=== PATIENT | male | born 1985 | race African-American/Black ===

== ENCOUNTER 2018-02-02 11:51 | Emergency (ER) | payer OTHER ==
[~2018-02-02] VITALS: Ht 195.6 cm; Wt 163.3 kg
[~2018-02-02 11:51] MED LIST: PERCOCET 5-3251 EACH PO; PREDNISONE10 M2 PO
[2018-02-02 12:47] LABS: ABSOLUTE BASOPHIL COUNT 0 /CUMM (0.0-0.2); ABSOLUTE EOSINOPHIL COUNT 0.1 /CUMM (0.0-0.7); ABSOLUTE GRANULOCYTE CT 6.8 /CUMM (1.4-6.5); ABSOLUTE LYMPH COUNT 1.1 /CUMM (1.2-3.4); ABSOLUTE MONOCYTE COUNT 0.5 /CUMM (0.10-0.60); BASOPHIL % 0.3 % (0.0-2.0); EOSINOPHIL % 1.5 % (0-5); GRANULOCYTE % 79.4 % (42.2-75.2); HEMATOCRIT 39.8 % (42-52); MEAN CORPUSCULAR HGB 28.3 PG (27.0-31.0); MEAN CORPUSCULAR HGB CONC 33.2 G/DL (33.0-37.0); MEAN CORPUSCULAR VOLUME 85.1 FL (80.0-94.0); MEAN PLATELET VOLUME 7.2 FL (7.4-10.4); PLATELET COUNT 443 /CUMM (130-400); RED BLOOD CELL CT 4.68 /CUMM (4.70-6.10); WHITE BLOOD CELL COUNT 8.6 /CUMM (4.8-10.8)
--- NOTE | 2018-02-02 17:04 | ED GI/GU/ABDOMINAL COMPLAINT ---
History of Present Illness General Chief Complaint: Abdominal Pain/Flank Pain Stated Complaint: ABD PAIN Source: patient Exam Limitations: no limitations Vital Signs & Intake/Output Vital Signs & Intake/Output Vital Signs Date Time Temp Pulse Resp B/P B/P Pulse O2 O2 Flow FiO2 Mean Ox Delivery Rate 02/02 2022 97.5 71 18 148/68 99 Room Air 02/02 1805 Room Air 02/02 1649 98.4 76 18 165/93 96 Room Air 02/02 1215 98.0 76 15 171/86 96 Room Air Room Air Allergies Coded Allergies: Milk Containing Products (LACTOSE INTOLERANT 02/02/18) Triage Note: PT BIBA FROM HOME FOR ABD PAIN MIDEPIGASTRIC PAIN. PT TOOK TWO MOTRINS (TOTAL OF 400 MG) TO HELP AND THEN VOMITED SHORTLY AFTER. REPORTS CHEST PAIN THEN, BUT NO PAIN AT THIS TIME. LAYING DOWN MADE PAIN WORSE. DENIES G/U SYMPTOMS. Triage Nurses Notes Reviewed? yes Onset: Abrupt Duration: hour(s):, intermittent Timing: recent history Quality/Severity: mild, moderate, sharpness Location: epigastric Radiation: no radiation Activities at Onset: none No Modifying Factors: none HPI: 33-year-old male comes into the emergency room with complaints of epigastric pain. Symptoms began earlier today before noon. Patient reports that he had a sudden onset sharp pain. He took some Motrin and then vomited it up. He has had the pain intermittently since. The pain is located in the epigastric region. Denies any changes in bowel movement. Denies any prior abdominal surgeries. Denies any prior history of this pain. He comes in for further evaluation. (Juan Jose Ayala) Reconcile Medications Ibuprofen (Nilsa-Profen) 200 MG TABLET 3-4 TAB PO PRN PAIN/INFLAMMATION ( Reported) Multiple Vitamin (Multivitamins) 1 EACH TABLET 1 TAB PO DAILY SUPPLEMENT ( Reported) Omeprazole 40 MG CAPSULE. 1 CAP PO DAILY acid eflux (Tomas Olivares) Past History Travel History Traveled to [place] past 21 day No Medical History Any Pertinent Medical History? 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 No (Juan Jose Ayala) Review of Systems Review of Systems Constitutional: Reports: no symptoms. EENTM: Reports: no symptoms. Respiratory: Reports: no symptoms. Cardiovascular: Reports: no symptoms. GI: Reports: see HPI. Genitourinary: Reports: no symptoms. Musculoskeletal: Reports: no symptoms. Skin: Reports: no symptoms. Neurological/Psychological: Reports: no symptoms. Hematologic/Endocrine: Reports: no symptoms. Immunologic/Allergic: Reports: no symptoms. All Other Systems: Reviewed and Negative (Juan Jose Ayala) Physical Exam Physical Exam General Appearance: well developed/nourished, no apparent distress, alert, awake Head: atraumatic, normal appearance Eyes: Bilateral: normal appearance. Ears, Nose, Throat, Mouth: hearing grossly normal, moist mucous membrane Neck: normal inspection Respiratory: normal breath sounds, no respiratory distress Cardiovascular: regular rate/rhythm Gastrointestinal: soft, non-tender Back: normal inspection Extremities: normal range of motion Neurologic/Psych: awake, alert, oriented x 3, normal gait Skin: intact, normal color Core Measures ACS in differential dx? Yes Sepsis Present: No Sepsis Focused Exam Completed? No (Juan Jose Ayala) Progress Differential Diagnosis: AMI, biliary colic, bowel obstruction, cholecystitis, gastritis, peptic ulcer, PUD/GERD, perforated viscous, SBO Plan of Care: Orders Procedure Date/time Status URINE DRUGS OF ABUSE 02/02 1705 Complete URINALYSIS 02/02 1705 Complete TROPONIN LEVEL 02/02 1704 Complete Add-on Test (ER Only) 02/02 1703 Active Add-on Test (ER Only) 02/02 1508 Active EKG 02/02 1508 Active TROPONIN LEVEL 02/02 1238 Complete D-DIMER 02/02 1238 Complete LIPASE 02/02 1226 Complete COMPREHENSIVE METABOLIC PANEL 02/02 1226 Complete CBC WITHOUT DIFFERENTIAL 02/02 1226 Complete Laboratory Tests 02/02/18 1749: Troponin I < 0.01 02/02/18 1725: Urine Opiates Screen < 100, Methadone Screen < 40, Barbiturate Screen < 60, Ur Phencyclidine Scrn < 6.00, Amphetamines Screen < 100, U Benzodiazepines Scrn < 85, Urine Cocaine Screen < 50, Urine Cannabis Screen < 5.00, Urine Color YEL, Urine Clarity CLEAR, Urine pH 5.5, Ur Specific [place] >= 1.030, Urine Protein 100 H, Urine Ketones 15 H, Urine Nitrite NEG, Urine Bilirubin NEG, Urine Urobilinogen 1.0, Ur Leukocyte Esterase NEG, Ur Microscopic SEDIMENT EXAMINED, Urine WBC 1-3 H, Urine Crystals RARE [place], Urine Bacteria RARE H, Urine Mucus FEW, Urine Hemoglobin NEG, Urine Glucose NEG 02/02/18 1238: Anion Gap 11, Estimated GFR > 60, BUN/Creatinine Ratio 17.1, Glucose 112 H, Calcium 9.3, Total Bilirubin 0.5, AST 52, ALT 47, Alkaline Phosphatase 119, Troponin I < 0.01, Total Protein 8.1, Albumin 4.2, Globulin 3.9, Albumin/ Globulin Ratio 1.1, Lipase 48, D-Dimer High Sensitivty 316 H, CBC w Diff NO MAN DIFF REQ, RBC 4.68 L, MCV 85.1, MCH 28.3, MCHC 33.2, RDW 13.0, MPV 7.2 L, Gran % 79.4 H, Lymphocytes % 13.4 L, Monocytes % 5.4, Eosinophils % 1.5, Basophils % 0.3, Absolute Granulocytes 6.8 H, Absolute Lymphocytes 1.1 L, Absolute Monocytes 0.5, Absolute Eosinophils 0.1, Absolute Basophils 0 JUAN JOSE ARAIZA PA-C DISCUSSED WITH ME FOR HAND OFF IN WHICH CTA IS PENDING DISCUSSED CT RESULTS WITH PT with unremarkable findings patient was given COPIES of blood work and imaging Upon discharge patient had normal steady gait and had no questions (Tomas Olivares) Diagnostic Imaging: Viewed by Me: Radiology Read, CT Scan, Ultrasound. Discussed w/RAD: Radiology Read, CT Scan, Ultrasound. Radiology Impression: PATIENT: KENDY BABB PRESENT AGE: 33 PATIENT ACCOUNT NO: [id number] : 87 LOCATION: [facility] ORDERING PHYSICIAN: Juan Jose STOKES SERVICE DATE: 02/02/18 EXAM TYPE: RAD - XRY-CHEST XRAY, TWO VIEWS EXAMINATION: XR CHEST CLINICAL INFORMATION: Epigastric pain COMPARISON: None TECHNIQUE: 2 views of the chest were obtained. FINDINGS: No significant abnormality is noted involving the heart, lungs, mediastinum, bony thorax or soft tissues. IMPRESSION: Unremarkable examination. DICTATED BY: Talon Chowdhury MD DATE/TIME DICTATED:02/02/181730 [employer] SUPERVISOR: GUSTAVO DATE/TIME TRANSCRIBED:02/02/181730 CONFIDENTIAL, DO NOT COPY WITHOUT APPROPRIATE AUTHORIZATION. <Electronically signed in Other Vendor System> SIGNED BY: Talon Chowdhury MD 02/02/181734, PATIENT: KENDY BABB PRESENT AGE: 33 PATIENT ACCOUNT NO: [id number] : 87 LOCATION: [facility] ORDERING PHYSICIAN: Juan Jose STOKES SERVICE DATE: 02/02/18 EXAM TYPE: US - US-LIMITED ABDOMEN EXAMINATION: US ABDOMEN LIMITED CLINICAL INFORMATION: Sharp and sudden epigastric pain. COMPARISON: None TECHNIQUE: Real-time imaging of the right upper quadrant abdominal viscera. Limited study due to body habitus and bowel gas. FINDINGS: PANCREAS: Obscured by bowel gas. LIVER: Enlarged and measures up to nearly 19 cm in length. There is increased hepatic echogenicity without a discrete lesion; evaluation is limited. GALLBLADDER: Normal. The gallbladder is physiologically distended without evidence of stones, sludge, polyps, wall thickening or pericholecystic fluid. COMMON BILE DUCT: Normal in caliber measuring 0.4 cm in diameter. RIGHT KIDNEY: Normal. No hydronephrosis. No renal calculi or focal parenchymal lesions. The kidney measures 15 cm in maximum dimension. FREE FLUID: None. IMPRESSION: Limited study due to patient body habitus and bowel gas. Normal appearance of the gallbladder. Mild hepatomegaly with increased echogenicity. Although nonspecific, findings can be seen in the setting of fatty infiltration. DICTATED BY: Wilfredo Connelly MD DATE/TIME DICTATED:02/02/181841 [employer] SUPERVISOR: GUSTAVO DATE/TIME TRANSCRIBED:02/02/181841 CONFIDENTIAL, DO NOT COPY WITHOUT APPROPRIATE AUTHORIZATION. <Electronically signed in Other Vendor System> SIGNED BY: Wilfredo Connelly MD 02/02/181847, PATIENT: KENDY BABB PRESENT AGE: 33 PATIENT ACCOUNT NO: [id number] : 87 LOCATION: [facility] ORDERING PHYSICIAN: Juan Jose STOKES SERVICE DATE: 03/16/18-1823 EXAM TYPE: CAT - CTA CHEST-PULMONARY EMBOLISM EXAMINATION: CT ANGIOGRAM OF THE CHEST WITH AND WITHOUT CONTRAST (CT PULMONARY ANGIOGRAM FOR PE) CLINICAL INFORMATION: Chest pain. COMPARISON: Chest x-ray 02/01/2018 TECHNIQUE: Prior to contrast administration, noncontrast localization images were obtained. Subsequently, multidetector volumetric imaging was performed from the thoracic inlet to below the diaphragms following the administration of 88 mL Optiray 320 intravenous contrast. No contrast reaction reported. Sagittal, coronal, and MIP oblique sagittal reformatted images were obtained on the CT workstation, uploaded to PACS, and reviewed. Total exam dose-length product 491.57 mGy-cm. FINDINGS: QUALITY OF STUDY/CONTRAST BOLUS: Satisfactory PULMONARY ARTERIES: No central or segmental pulmonary emboli. THORACIC AORTA: No aneurysm or dissection. LUNG: No focal consolidation, nodules or masses. PLEURA: No pleural effusion or pneumothorax. MEDIASTINUM: Normal heart size. No pericardial effusion. No hilar or mediastinal lymphadenopathy. No evidence of septal bowing or right heart strain. CHEST WALL/AXILLA: No axillary or internal mammary lymphadenopathy. OSSEOUS STRUCTURES: No acute or suspicious osseous abnormality. UPPER ABDOMEN: Unremarkable. No reflux of contrast into the hepatic veins to suggest elevated right heart pressures. IMPRESSION: No acute abnormality of the chest. No evidence of pulmonary embolism. VTE: negative DICTATED BY: Jv Garcia MD DATE/TIME DICTATED:02/02/182015 [employer] SUPERVISOR:GUSTAVO DATE/TIME TRANSCRIBED:02/02/182015 CONFIDENTIAL, DO NOT COPY WITHOUT APPROPRIATE AUTHORIZATION. <Electronically signed in Other Vendor System> SIGNED BY: Jv Garcia MD 02/02/182022 Initial ED EKG: normal sinus rhythm, rate (71) Hand-Off Endorsed To: Tomas Olivares (Juan Jose Ayala) Departure Departure Disposition: HOME OR SELF CARE Condition: Stable Clinical Impression Primary Impression: Abdominal pain Referrals: Patient Has No Primary Care Dr (PCP/Family) Additional Instructions: Follow-up with primary care doctor. Return if any concerns worsening symptoms. Please go over all results of today's visit with your primary care doctor. Contact your primary care doctor to let them know you were here in the emergency room. There may be nonspecific findings which may not be related to your visit today here in the emergency room but may require further evaluation and chronic monitoring by your primary care doctor. If you had a laceration today the chance of foreign body always remains. You should follow-up with your primary care doctor for recheck in 3-5 days for a wound check. If you had an x-ray done there is a chance that a fracture could have been missed on initial read and you should follow-up with your primary care doctor for repeat x-rays if symptoms persist. If your blood pressure was elevated here in the emergency room please have rechecked by [facility] primary care doctor within the next 48. If you were prescribed a narcotic here in the emergency room or any type of controlled substances you're not allowed to drive while taking this medication or operate any type of heavy machinery. Narcotics can make you feel lightheaded dizziness nausea and can cause constipation. You may need to pharmacy picking technician a stool softener. Thank you for choosing [facility] emergency room. Please return to the emergency room immediately if you have any other concerns worsening of symptoms. Departure Forms: Customer Survey General Discharge Information Prescriptions: Current Visit Scripts Omeprazole 1 CAP PO DAILY #30 CAP Comments 02/02/18 Patient clinically looks well. Patient is now very stressed. Patient is nontoxic-appearing. Patient signout to DIVYA Beltrán pending CT angiogram of chest. (Juan Jsoe Ayala)
--- NOTE | 2018-02-02 17:35 | RADIOLOGY REPORT ---
EXAMINATION: XR CHEST CLINICAL INFORMATION: Epigastric pain COMPARISON: None TECHNIQUE: 2 views of the chest were obtained. FINDINGS: No significant abnormality is noted involving the heart, lungs, mediastinum, bony thorax or soft tissues. IMPRESSION: Unremarkable examination.
[2018-02-02] MEDS ORDERED: MULTIVITAMINS1 EAC9 PO (17:51)
[2018-02-02] MEDS ORDERED: WAL-PROFEN200 MG PO (17:52)
--- NOTE | 2018-02-02 18:48 | ULTRASOUND REPORT ---
EXAMINATION: US ABDOMEN LIMITED CLINICAL INFORMATION: Sharp and sudden epigastric pain. COMPARISON: None TECHNIQUE: Real-time imaging of the right upper quadrant abdominal viscera. Limited study due to body habitus and bowel gas. FINDINGS: PANCREAS: Obscured by bowel gas. LIVER: Enlarged and measures up to nearly 19 cm in length. There is increased hepatic echogenicity without a discrete lesion; evaluation is limited. GALLBLADDER: Normal. The gallbladder is physiologically distended without evidence of stones, sludge, polyps, wall thickening or pericholecystic fluid. COMMON BILE DUCT: Normal in caliber measuring 0.4 cm in diameter. RIGHT KIDNEY: Normal. No hydronephrosis. No renal calculi or focal parenchymal lesions. The kidney measures 15 cm in maximum dimension. FREE FLUID: None. IMPRESSION: Limited study due to patient body habitus and bowel gas. Normal appearance of the gallbladder. Mild hepatomegaly with increased echogenicity. Although nonspecific, findings can be seen in the setting of fatty infiltration.
[2018-02-02] MEDS ORDERED: OMEPRAZOLE40 M1 PO (19:37)
[2018-02-02 20:22] VITALS: BP 148/68
--- NOTE | 2018-02-02 20:23 | CT SCAN REPORT ---
EXAMINATION: CT ANGIOGRAM OF THE CHEST WITH AND WITHOUT CONTRAST (CT PULMONARY ANGIOGRAM FOR PE) CLINICAL INFORMATION: Chest pain. COMPARISON: Chest x-ray 02/01/2018 TECHNIQUE: Prior to contrast administration, noncontrast localization images were obtained. Subsequently, multidetector volumetric imaging was performed from the thoracic inlet to below the diaphragms following the administration of 88 mL Optiray 320 intravenous contrast. No contrast reaction reported. Sagittal, coronal, and MIP oblique sagittal reformatted images were obtained on the CT workstation, uploaded to PACS, and reviewed. Total exam dose-length product 491.57 mGy-cm. FINDINGS: QUALITY OF STUDY/CONTRAST BOLUS: Satisfactory PULMONARY ARTERIES: No central or segmental pulmonary emboli. THORACIC AORTA: No aneurysm or dissection. LUNG: No focal consolidation, nodules or masses. PLEURA: No pleural effusion or pneumothorax. MEDIASTINUM: Normal heart size. No pericardial effusion. No hilar or mediastinal lymphadenopathy. No evidence of septal bowing or right heart strain. CHEST WALL/AXILLA: No axillary or internal mammary lymphadenopathy. OSSEOUS STRUCTURES: No acute or suspicious osseous abnormality. UPPER ABDOMEN: Unremarkable. No reflux of contrast into the hepatic veins to suggest elevated right heart pressures. IMPRESSION: No acute abnormality of the chest. No evidence of pulmonary embolism. VTE: negative
== END 2018-02-02 20:41 ==
LOC: ERH 11:51
PROVIDERS: Emergency Medicine
DX: R10.13 Epigastric pain (principal)
CPT/HCPCS: 71046; 80307; 81001; 93005; 93010